=== PATIENT | male | born 1985 | race Two or more races ===

== ENCOUNTER 2025-09-12 20:59 | Emergency (ER) | payer SELFPAY ==
[2025-09-12 21:02] VITALS: BMI 25.1
[2025-09-12 21:18] VITALS: BP 154/69; PULSE 89; RESP 22; TEMP 36.6; O2SAT 95
--- NOTE | 2025-09-12 21:31 | XR_ITS ---
EXAMINATION: PA chest single view TECHNIQUE: Upright PA chest single view Date and time: September 12, 2025, 2143 hours INDICATIONS: Seizure history FINDINGS: Normal heart size Minor linear scarring in both lungs No lobar pneumonia or aspiration pneumonia No pulmonary edema Intact osseous structures IMPRESSION: Negative for aspiration pneumonia
--- NOTE | 2025-09-12 21:32 | PD.EDRME ---
Rapid Medical Screening Exam RME Arrival date/time: 09/12/25 20:59 This is a case of 39-year-old male who is living in a par had seizure episode today patient states that he is grinding his teeth and accidentally bitten his tongue denies any head injury Chief Complaint: Medical Clearance Time Seen by Provider: 09/12/25 21:31 Vital signs: Vital Signs Temperature 97.8 F 09/12/25 21:18 Pulse Rate 89 09/12/25 21:18 Respiratory Rate 22 H 09/12/25 21:18 Blood Pressure 154/69 H 09/12/25 21:18 Pulse Oximetry (%) 95 09/12/25 21:18 Oxygen Delivery Method Room Air 09/12/25 21:18 Exam: Awake alert oriented x 4 no focal deficit GCS 15/15 steady gait Clinical Impression: allan
--- NOTE | 2025-09-12 21:41 | PD.EDSEIZ ---
ED Seizures RME/HPI General Chief Complaint: Medical Clearance Stated Complaint: SZ HX OF Time Seen by Provider: 09/12/25 21:31 Arrival date/time: 09/12/25 20:59 Limitations: no limitations RME / HPI RME / HPI Narrative: 09/12/25 20:59 This is a case of 39-year-old male who is living in a par had seizure episode today patient states that he is grinding his teeth and accidentally bitten his tongue denies any head injury -------- Dr. Goldsmith's Main ED Evaluation: 39yo male with a history of epilepsy presents to the ED for a chief complaint of increased seizure activity. Patient states he's been having seizures throughout the day today despite being compliant with his medications. Patient states he's been biting his tongue and grinding his teeth. Patient denies any falls or trauma. Denies any other associated symptoms. NKA. Related Data Allergies Allergy/AdvReac Type Severity Reaction Status Date / Time No Known Allergies Allergy Verified 09/12/25 21:07 Review of Systems Review of Systems Systems Reviewed: All systems reviewed, normal except as documented ED Exam General Limitations: Present no limitations General appearance: Present alert and in no apparent distress Head Head exam: Present atraumatic Eye Eye exam: Present normal appearance, PERRL and EOMI ENT ENT exam: Present normal exam, normal oropharynx and mucous membranes moist Neck Neck exam: Present normal inspection, full ROM and trachea midline Chest Chest inspection: Present normal inspection and symmetric chest wall rise Respiratory Respiratory exam: Present normal lung sounds bilaterally Cardiovascular Cardiovascular exam: Present regular rate, normal rhythm and normal heart sounds Abdominal Exam Abdominal exam: Present soft and normal bowel sounds Extremities Exam Extremities exam: Present normal inspection and full ROM Back Exam Back exam: Present normal inspection and full ROM Neurological Exam Neurological exam: Present alert, oriented X3, CN II-XII intact and other (normal gait, no tremors, no slurred speech) Psychiatric Psychiatric exam: Present normal affect and normal mood Skin Skin exam: Present warm, dry, intact and normal color Course Quality Measures none Orders Category Date Time Status IV [Insert IV] STAT Care 09/12/25 21:41 Completed Seizure precautions ONCE Care 09/12/25 21:41 Completed XR chest 1V Stat Exams 09/12/25 21:31 Completed Alcohol, Blood Medical Stat Lab 09/12/25 22:00 Completed CBC Stat Lab 09/12/25 22:00 Completed CMP [Comprehensive Metabolic Panel] Stat Lab 09/12/25 22:00 Completed Drug Screen,Urine Stat Lab 09/12/25 22:00 Completed Urinalysis Stat Lab 09/12/25 22:00 Completed Sodium Chloride 0.9% 1000 ml [Ns] 1,000 ml Med 09/12/25 21:41 Discontinued IV 999 mls/hr Vital Signs Vital signs: Vital Signs Temperature 97.8 F 09/12/25 21:18 Pulse Rate 89 09/12/25 21:18 Respiratory Rate 22 H 09/12/25 21:18 Blood Pressure 154/69 H 09/12/25 21:18 Pulse Oximetry (%) 95 09/12/25 21:18 Oxygen Delivery Method Room Air 09/12/25 21:18 Seizure MDM Narrative MDM Narrative:: Scribe Attestation: 09/12/25 - Gris Colvin am scribing for and in the presence of Dr. Goldsmith. Patient presents to the emergency department with grinding teeth which he does all of the time. Patient is not stating that he is having a grand mal seizure. He was [facility] the drug [facility] center and they were concerned because of his grinding his teeth. At this time the patient has no seizure-like activity. There is no source of infection. Labs are reviewed and interpreted by me. The patient has a normal white count of 8.6 and otherwise glucose is normal at 90. Patient has some baseline abnormal abnormalities of his LFTs but total bili is normal he is not complaining of abdominal pain. Otherwise urinalysis does not show UTI. Patient's drug screen is negative. Patient will continue his Keppra as an outpatient. Return precautions given and understood. Patient data External records reviewed:: [facility] previous records (Per chart review, patient has no previous ED visits or admissions to this facility.) Clinical information provided by:: patient Social determinants that could affect healthcare access:: housing (resides at the [facility]) Patient has the following chronic illnesses:: epilepsy, schizophrenia, anxiety, depression How is presenting disease/condition affected by chronic disease/condition?: caused by Evaluation data The following diagnostics were reviewed and interpreted by me:: lab results and radiology exam(s) Lab and/or radiology exams considered but not ordered:: none Interpretation Summary: CBC normal, Na normal, K normal, Creatinine normal, UA unremarkable, UDS negative, Blood Alcohol negative. [place] [facility] Report Signed Patient: ANGEL PLEITEZ Record#: [id number] Birthdate: 1985 Age/Sex: 39 / M [facility] Dr: Ordering Physician: Jarek Cedeno Date of Service: 09/12/25 Procedure(s): XR chest 1V Accession Number(s): [id number] cc: Miguel Ángel Lind MD; Jarek Cedeno~ EXAMINATION: PA chest single view TECHNIQUE: Upright PA chest single view Date and time: September 12, 2025, 2142 hours INDICATIONS: Seizure history FINDINGS: Normal heart size Minor linear scarring in both lungs No lobar pneumonia or aspiration pneumonia No pulmonary edema Intact osseous structures IMPRESSION: Negative for aspiration pneumonia Dictated By: Miguel Ángel Lind MD Signed By: <Electronically signed by Miguel Ángel Lind MD in OV> 09/12/259 Medications / Prescriptions Medications or Prescriptions considered but not ordered:: none Medication administrations:: Medication Administration History Discontinued Medications Sodium Chloride (Ns) 1,000 mls @ 999 mls/hr IV .Q1H1M ONE Stop: 09/12/25 22:41 Last Infusion: 09/12/25 23:28 Dose: Infused Documented By: Admin: 09/12/25 21:54 Dose: 999 mls/hr Documented By: SHELL see above Consultations Consultation(s) initiated? (list below): No Diagnosis Seizure Differential Diagnosis: generalized seizure and other (dehydration, electrolyte abnormality) Most likely diagnosis given after review of the tests above:: see clinical impression below Admission Indicated Admission indicated?: not indicated Explain why admission is indicated or not indicated:: Patient feels significantly better and is stable to be discharged home. Admission Request Was there a request for admission?: No Disposition Plan Disposition Plan: Discharge Discharge Attestation Discharge Attestation: The patient and all family members were given an opportunity to ask questions and understood the discharge instructions. Discharge instructions specifically effects, indications for sooner follow up or return to the emergency department, and the expected course of current diagnosis. Patient condition: Stable Discharge Plan Plan Patient Disposition: HOME (Self Care) Patient condition on transfer: Stable Prescriptions/Referrals Referrals: [facility] [Other] - In 1 week Referral Note: That you get yourself established with a primary care physician. No Primary/Family,Physician [Primary Care Provider] - In 1 week Problem List Clinical Impression: Grinding of teeth Patient/Caregiver Discharge Instructions Additional Instructions: Please continue medication as prescribed. Return to emergency department for worsening symptoms or any other concerns. Print Language: Syriac Stand Alone Forms: [employer] Info., Patient Portal Info Letter
[2025-09-12] MEDS: SODIUM CHLORIDE 0.9% 1000 ML 1,000 ML 999 ML IV (21:54)
[2025-09-12 22:11] LABS: Collection Type, Urine Voided; Squamous Epithelial Cell,Urine 0 /hpf (0-5)
[2025-09-12 22:15] LABS: Basophils # (Auto) 0.1 Thou/mm3 (0.0-0.2); Basophils % (Auto) 1 % (0-2.5); Eosinophils # (Auto) 0.3 Thou/mm3 (0.0-0.5); Eosinophils % (Auto) 4 % (0-10); Hematocrit 44.2 % (41.0-53.0); Hemoglobin 14.8 g/dL (13.5-16.0); Immature Granulocytes Auto 0.09 Thou/mm3 (0.00-0.00); Lymphocytes # (Auto) 3.4 Thou/mm3 (1.0-4.8); Lymphocytes % (Auto) 40 % (10-50); Mean Corpuscular HGB Conc 33.5 g/dl (31.0-37.0); Mean Corpuscular Hemoglobin 31.6 pg (25.0-35.0); Mean Corpuscular Volume 94 fL (80-100); Monocytes # (Auto) 0.9 Thou/mm3 (0.0-0.8); Monocytes % (Auto) 10 % (0-12); Neutrophils # (Auto) 3.8 Thou/mm3 (1.8-7.7); Neutrophils % (Auto) 45 % (37-80); Nucleated Red Blood Cell # 0.00 Thou/mm3 (0.00-0.00); Nucleated Red Blood Cell % 0 /100 WBC (0); Platelet Count 367 Thou/mm3 (140-440); RDW Standard Deviation 45.3 fL (35.1-43.9); Red Blood Count 4.68 Miln/mm3 (4.50-5.90); White Blood Count 8.6 Thou/mm3 (3.8-10.6)
[2025-09-12 22:25] LABS: Amorphous Crystals,Urine Present (Absent); Bilirubin,Urine Negative (Negative); Blood,Urine Negative (Negative); Clarity,Urine Clear (Clear/Hazy); Color,Urine Lt-Yellow (Lt Yel-Yel); Glucose, Urine Negative (Negative); Granular Casts,Urine < 1 /hpf (0-1); Ketones,Urine Negative (Negative); Leukocyte Esterase,Urine Negative (Negative); Nitrite,Urine Negative (Negative); PH,Urine 7.0 (5.0-7.0); Protein,Urine Negative (Neg - Trace); RBC,Urine 6 /hpf (0-3); Specific Gravity,Urine 1.022 (1.001-1.035); Urobilinogen,Urine Negative mg/dL (0.0-1.0); WBC,Urine < 1 /hpf (0-5)
[2025-09-12 22:26] LABS: Amphetamine/Methamp Scrn,U Negative (Negative); Barbiturate Screen,Urine Negative (Negative); Benzodiazepines Screen,Urine Negative (Negative); Benzoylecgonine Screen, Ur Negative (Negative); Fentanyl Screen,Urine Negative (Negative); Opiate Screen,Urine Negative (Negative); THC Screen,Urine Negative (Negative)
[2025-09-12 22:44] LABS: Alanine Aminotransferase 142 U/L (10-49); Albumin, Serum 4.6 gm/dL (3.5-5.0); Albumin/Globulin Ratio 1.8 (1.2-2.2); Alcohol, Blood Medical < 3.0 mg/dL (0-10.0); Alkaline Phosphatase 142 U/L (46-116); Anion Gap 9 (7-16); Aspartate Amino Transferase 48 U/L (0-34); BUN/Creatinine Ratio 13 Ratio (12-20); Bilirubin,Total 0.3 mg/dL (0.3-1.2); Blood Urea Nitrogen 16 mg/dL (9-23); Calcium 8.9 mg/dL (8.3-10.6); Calcium (Corrected) 8.9 mg/dL (8.5-10.1); Carbon Dioxide 22.2 mMol/L (20.0-31.0); Chloride 111 mMol/L (98-107); Creatinine (Component) 1.2 mg/dL (0.6-1.3); Estimated Creatinine Clearance 88.9 mL/min (>60); Globulin 2.5 gm/dL (2.3-3.5); Glucose 90 mg/dL (74-106); Osmolality,Calculated 284 (275-295); Potassium 4.0 mMol/L (3.4-5.1); Sodium 142 mMol/L (136-145); Total Protein 7.1 gm/dL (5.7-8.2); eGFR > 60 See Note
[2025-09-12 23:50] VITALS: BP 93/56; PULSE 66; RESP 19; TEMP 37; O2SAT 100
[2025-09-12 23:59] VITALS: BP 100/63; PULSE 75; RESP 18; TEMP 36.3; O2SAT 98
[2025-09-13 00:28] VITALS: BP 96/53; PULSE 77; RESP 15; TEMP 36.7; O2SAT 100
== END 2025-09-13 00:32 | disposition home or self-care (01) ==
PROVIDERS: Nurse Practitioner Family; Emergency Provider Emergency Medicine
DX: F45.8 Other somatoform disorders (principal); G40.909 Epilepsy, unspecified, not intractable, without status epilepticus
CPT/HCPCS: 36415; 71045; 80053; 80307; 80320; 81001; 85025; 96360; 96361; 99283; J7030; G0480

== ENCOUNTER 2025-09-22 10:55 | Emergency (ER) | payer SELFPAY ==
[2025-09-22 11:34] VITALS: BP 126/76; PULSE 89; RESP 16; TEMP 36.6; O2SAT 97; BMI 27.8
--- NOTE | 2025-09-22 11:52 | PD.EDADULT ---
ED General RME/HPI General Chief complaint: General Adult/Misc Complain Stated complaint: needs Keppra refilled Time Seen by Provider: 09/22/25 11:43 Arrival date/time: 09/22/25 10:55 Limitations: no limitations RME / HPI RME / HPI narrative: This patient is a 31-year-old male who arrives to the ED today with request for medication refill. Patient has a history of seizures and utilizes Keppra 500 mg 3 times a day. Patient states he is in the process of changing providers and therefore, would like assistance with medication concerns. Patient denies any current seizure events and has medication for the next 2 days. Patient denies any syncopal events or any additional medical concerns. Related Data Previous Rx's ?Medication ?Instructions ?Recorded levetiracetam 500 mg tablet 500 mg PO TID #90 tabs 09/22/25 (Keppra) Allergies Allergy/AdvReac Type Severity Reaction Status Date / Time No Known Allergies Allergy Verified 09/22/25 10:59 Review of Systems Review of Systems Systems Reviewed: All systems reviewed, normal except as documented Past Medical History Past Medical History NEUROLOGIC: Positive Epilepsy CARDIAC: Negative Hypercholesterolemia, Congestive Heart Failure or Hypertension RESPIRATORY: Negative Chronic Obstructive Pulmonary Disease (COPD) GENITOURINARY: Negative Renal Disease ENDOCRINE: Negative Diabetes Mellitus Type 1 or Diabetes Mellitus Type 2 PSYCHO/SOCIAL: Positive Schizophrenia, Depression and Anxiety Social History SMOKING STATUS: Current every day smoker ED Exam General Limitations: Present no limitations General appearance: Present alert and in no apparent distress Head Head exam: Present atraumatic Eye Eye exam: Present normal appearance, PERRL and EOMI ENT ENT exam: Present normal exam, normal oropharynx and mucous membranes moist Neck Neck exam: Present normal inspection, full ROM and trachea midline Chest Chest inspection: Present normal inspection and symmetric chest wall rise Respiratory Respiratory exam: Present normal lung sounds bilaterally Cardiovascular Cardiovascular exam: Present regular rate, normal rhythm and normal heart sounds Abdominal Exam Abdominal exam: Present soft and normal bowel sounds Rectal Exam Rectal exam: Present deferred Extremities Exam Extremities exam: Present normal inspection and full ROM Back Exam Back exam: Present normal inspection and full ROM Neurological Exam Neurological exam: Present alert, oriented X3 and CN II-XII intact Psychiatric Psychiatric exam: Present normal affect and normal mood Skin Skin exam: Present warm, dry, intact and normal color Course Quality Measures none Vital Signs Vital signs: Vital Signs Temperature 97.8 F 09/22/25 11:34 Pulse Rate 89 09/22/25 11:34 Respiratory Rate 16 09/22/25 11:34 Blood Pressure 126/76 09/22/25 11:34 Pulse Oximetry (%) 97 09/22/25 11:34 Oxygen Delivery Method Room Air 09/22/25 11:34 Discharge Plan Plan Patient Disposition: HOME (Self Care) Prescriptions/Referrals Prescriptions/Med Rec: New levetiracetam [Keppra] 500 mg tablet 500 mg PO TID Qty: 90 0RF Problem List Clinical Impression: Encounter for medication refill Patient/Caregiver Discharge Instructions Additional Instructions: Advised patient to follow-up with primary care provider as soon as possible for long-term management of his medication needs related to his seizure management. Print Language: Sudanese Stand Alone Forms: [place] Info., Patient Portal Info Letter MDM Narrative MDM hospital course (for use when minimal MDM required): Spent time discussing the patient's request with him. Advised that the patient needs to secure a primary care provider for long-term management of his seizure medication concerns. Patient will be dispensed a 1 month supply to afford him time to accomplish that task. Clinical Information Provided by: patient Medical Records reviewed [facility] Meds/Rx considered, not ordered None Labs/Rad/Tests considered, not ordered None Chronic Illness/Social Conditions which may negatively complicate care or outcome(s)-explain: ETOH/drugs/substance abuse EKG EKG not done Labs Labs: none Imaging Imaging interpretation: none Medication Administration(s) none Diagnosis Diagnoses ruled out and/or further discussions: Encounter for medication refill History of seizures
== END 2025-09-22 12:26 | disposition home or self-care (01) ==
LOC: SERX 12:03
PROVIDERS: Emergency Provider Physician Assistant
DX: Z76.0 Encounter for issue of repeat prescription (principal); G40.909 Epilepsy, unspecified, not intractable, without status epilepticus
CPT/HCPCS: 99281